=== PATIENT | male | born 1980 | race American Indian/Alaskan Native ===

== ENCOUNTER 2021-01-23 09:45 | Day surgery (SDC) | payer MEDICAID ==
[~2021-01-23 09:45] MED LIST: SODIUM CHLORIDE 0.9% 1000 ML 1,000 ML IV SCH
--- NOTE | 2021-01-23 10:40 | Anesthesia Consultation ---
Anesthesia Consult and Med Hx Date of service: 01/23/21 - Airway Anesthetic Teeth Evaluation: Poor (missing top incisors. Denies loose teeth) ROM Head & Neck: Adequate Mental/Hyoid Distance: Adequate Mallampati Class: Class III Intubation Access Assessment: Possibly Difficult - Pre-Operative Health Status ASA Pre-Surgery Classification: ASA2 Proposed Anesthetic Plan: MAC - Pulmonary Hx Smoking: Yes (quit cigarettes 1 month ago; continues to smoke THC ) Hx Respiratory Symptoms: No - Cardiovascular System Hx Hypertension: Yes (took antihypertensive this morning) - Central Nervous System CVA: No - Endocrine Hx Renal Disease: No Hx Liver Disease: No Hx Insulin Dependent Diabetes: No Hx Non-Insulin Dependent Diabetes: No Hx Thyroid Disease: No - Other Systems Hx Substance Use: Yes (THC) - Additional Comments Anesthesia Medical History Comments: No hx anesthetic complications.
--- NOTE | 2021-01-23 10:40 | Anesthesia Day of Surgery ---
Anesthesia Day of Surgery - Day of Surgery Patient Examined: Yes Patient H&P Reviewed: Yes Patient is NPO: Yes
[2021-01-23] MEDS ORDERED: propofoL 200 MG/20 ML VIAL IV ONE ×2 (11:22→11:42)
[2021-01-23] MEDS ORDERED: LIDOCAINE MPF (2%) 20 MG/1 ML VIAL 5 ML ONE (11:42)
[2021-01-23] MEDS ORDERED: fentaNYL 100 MCG/2 ML INJ ONE (11:44)
--- NOTE | 2021-01-23 11:57 | Procedure Note ---
Date of procedure: 01/23/21 Pre-op diagnosis: Hematochezia/ H/O Weight Loss/ F/H/O Colon Cancer (father in his late 40s) Post-op diagnosis: other (Rectal Mass (possibly neoplastic-extending from 6 cm to 18cm from the anal opening)/ No diverticuli/ No additional Colon Polyp) Procedure: Colonoscopy with Biopsy Anesthesia: [facility] [place] Surgeon: MARJORIE BARILLAS Estimated blood loss: minimal Pathology: list Specimen disposition: to lab Condition: stable Disposition: same day (Avoid aspirin and NSAID for 5 days; otherwise resume home medication. F/U in 1 to 2 weeks. Will refer patient to colo-rectal Surgeon and further workup for possible metastatic disease.)
--- NOTE | 2021-01-23 12:10 | Operative Report ---
DATE OF SURGERY: 01/23/2021 PROCEDURE: Colonoscopy. INDICATIONS: This is a 40-year-old -[place] gentleman in otherwise good health, who has a strong family history of cancer. The patient's father had colon cancer in his late 40s. The patient has been complaining of weight loss that he has lost about 30 pounds in the last several months and also of hematochezia. Colonoscopy was done to assess for the source of the hematochezia. DESCRIPTION OF PROCEDURE: Procedure was done after getting informed consent with MAC anesthesia. Initial rectal examination was unremarkable. The instrument was passed through the rectum onto the cecum, which was identified with ileocecal valve and the appendiceal orifice. Visualization was fair to good. The mucosa was washed with copious amounts of water. The cecum was also examined on the retroverted view. No additional pathology was noted. Cecum, ascending colon, transverse colon, descending colon, and sigmoid showed normal mucosa and the rectum from 6-18 cm, there was a large elevated mass, possibly likely neoplastic that was noted. Photodocumentation was obtained and multiple biopsies were done. The biopsies came off very easily and friable tissue suggestive of neoplastic lesion with minimal bleeding. 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 Family history of colon cancer, father had colon cancer in his late 40s. Weight loss. PLAN: To wait for the biopsy results. The patient will be ordered a CT scan of the abdomen and pelvis. CEA to assess for any metastasis. He will be referred to colorectal surgeon, possibly will need a rectal EUS and a CEA level will also be done as a tumor marker. The patient will be asked to avoid aspirin and aspirin-related products for the next few days and follow up in the office in 1-2 weeks' time. Procedure was done in the GI lab with assistance of the GI lab team, which included the GI nurse, the patient care technician instructor and with assistance of anesthesia. TID: [id number] RECEIPT: [id number] ISIAH/SUSAN
[2021-01-23 12:44] VITALS: BP 132/90
--- NOTE | 2021-01-23 13:04 | Post Anesthesia Evaluation ---
- Post Anesthesia Evaluation Patient Participated: Yes Airway Patent: Yes Stable Respiratory Function: Yes Nausea/Vomiting: No Temp > 96.8F: Yes Pain Manageable: Yes Adequeate Hydration: Yes Anesthesia Complications: No
== END 2021-01-23 12:50 | disposition home or self-care (01) ==
LOC: GIO 09:45
DX: K92.1 Melena (principal); R63.4 Abnormal weight loss; C20 Malignant neoplasm of rectum; C18.9 Malignant neoplasm of colon, unspecified; K63.89 Other specified diseases of intestine; K57.30 Diverticulosis of large intestine without perforation or abscess without bleeding; K64.0 First degree hemorrhoids; I10 Essential (primary) hypertension; F17.210 Nicotine dependence, cigarettes, uncomplicated; Z79.899 Other long term (current) drug therapy; Z98.890 Other specified postprocedural states
CPT/HCPCS: 36415; 45380; 82378; 88305; J2704; J3010; J7030